=== PATIENT | male | born 1985 | race Caucasian/White ===

== ENCOUNTER 2022-06-14 08:45 | Outpatient (RCR) | payer OTHER | END 2022-06-20 | LOC: M PT 08:45 | PROVIDERS: ATTEND Orthopaedic Surgery Orthopaedic Trauma | DX: S92.011D Displaced fracture of body of right calcaneus, subsequent encounter for fracture with routine healing (principal) ==

== ENCOUNTER 2022-07-19 11:00 | Outpatient (RCR) | payer OTHER | END 2022-07-20 | LOC: M PT 11:00 | PROVIDERS: ATTEND Orthopaedic Surgery Orthopaedic Trauma | DX: S92.011D Displaced fracture of body of right calcaneus, subsequent encounter for fracture with routine healing (principal) ==

== ENCOUNTER → 2022-08-28 | Outpatient (REF) | payer OTHER ==
[2022-08-28 17:10] LABS: BASO # 0.1 10^3/uL (0.0-0.2); BASO % 0.8 % (0.0-1.0); EOS # 0.1 10^3/uL (0.0-0.5); EOS % 1.1 % (0.0-3.0); HEMATOCRIT 38.6 % (42.0-52.0); HEMOGLOBIN 12.6 g/dl (13.5-17.5); LYMPH # 2.4 10^3/uL (1.5-5.0); LYMPH % 32.4 % (24.0-44.0); MEAN CORPUSCULAR HEMOGLOBIN 28.4 pg (27.0-33.0); MEAN CORPUSCULAR HGB CONC 32.6 g/dl (32.0-36.5); MEAN CORPUSCULAR VOLUME 86.9 fl (80.0-96.0); MONO # 0.5 10^3/uL (0.0-0.8); NEUTROPHILS # 4.4 10^3/uL (1.5-8.5); NEUTROPHILS % 58.9 % (36.0-66.0); PLATELET COUNT, AUTOMATED 402 10^3/uL (150-450); RED BLOOD COUNT 4.44 10^6/uL (4.30-6.10); WHITE BLOOD COUNT 7.5 10^3/uL (4.0-10.0)
[2022-08-28 18:17] LABS: ALBUMIN 3.6 GM/DL (3.2-5.2); ALT/SGPT 15 U/L (12-78); BILIRUBIN,TOTAL 0.3 MG/DL (0.2-1.0); BLOOD UREA NITROGEN 18 MG/DL (7-18); CALCIUM LEVEL 8.7 MG/DL (8.5-10.1); CARBON DIOXIDE LEVEL 26 MEQ/L (21-32); CHLORIDE LEVEL 104 MEQ/L (98-107); CREATININE FOR GFR 0.78 MG/DL (0.70-1.30); GLOMERULAR FILTRATION RATE > 60.0 (>60); GLUCOSE, FASTING 95 MG/DL (70-100); POTASSIUM SERUM 4.3 MEQ/L (3.5-5.1); SODIUM LEVEL 140 MEQ/L (136-145); TOTAL PROTEIN 7.6 GM/DL (6.4-8.2)
[2022-08-28 18:57] LABS: ERYTHROCYTE SEDIMENTATION RATE 39 mm/hr (0-15)
== END ==
LOC: M LAB REF 16:11
PROVIDERS: ATTEND Internal Medicine
DX: M86.171 Other acute osteomyelitis, right ankle and foot (principal); B95.61 Methicillin susceptible Staphylococcus aureus infection as the cause of diseases classified elsewhere

== ENCOUNTER → 2022-09-04 | Outpatient (REF) | payer OTHER ==
[2022-09-04 15:38] LABS: BASO # 0.1 10^3/uL (0.0-0.2); BASO % 0.8 % (0.0-1.0); EOS # 0.1 10^3/uL (0.0-0.5); EOS % 0.6 % (0.0-3.0); HEMATOCRIT 41.4 % (42.0-52.0); HEMOGLOBIN 13.2 g/dl (13.5-17.5); LYMPH # 2.7 10^3/uL (1.5-5.0); LYMPH % 31.6 % (24.0-44.0); MEAN CORPUSCULAR HEMOGLOBIN 28.3 pg (27.0-33.0); MEAN CORPUSCULAR HGB CONC 31.9 g/dl (32.0-36.5); MEAN CORPUSCULAR VOLUME 88.7 fl (80.0-96.0); MONO # 0.5 10^3/uL (0.0-0.8); NEUTROPHILS # 5.2 10^3/uL (1.5-8.5); NEUTROPHILS % 60.4 % (36.0-66.0); PLATELET COUNT, AUTOMATED 301 10^3/uL (150-450); RED BLOOD COUNT 4.67 10^6/uL (4.30-6.10); WHITE BLOOD COUNT 8.5 10^3/uL (4.0-10.0)
[2022-09-04 15:56] LABS: ALBUMIN 4.1 G/DL (3.2-5.2); ALT/SGPT 10 U/L (7.0-40); BILIRUBIN,TOTAL 0.2 MG/DL (0.3-1.2); BLOOD UREA NITROGEN 18 MG/DL (9-23); CALCIUM LEVEL 9.3 MG/DL (8.5-10.1); CARBON DIOXIDE LEVEL 27 MMOL/L (20-31); CHLORIDE LEVEL 102 MMOL/L (98-107); CREATININE FOR GFR 0.71 MG/DL (0.70-1.30); GLOMERULAR FILTRATION RATE > 60.0 (>60); GLUCOSE, FASTING 85 MG/DL (60-100); POTASSIUM SERUM 4.2 MMOL/L (3.5-5.1); SODIUM LEVEL 140 MMOL/L (136-145); TOTAL PROTEIN 7.5 G/DL
[2022-09-04 16:15] LABS: ERYTHROCYTE SEDIMENTATION RATE 29 mm/hr (0-15)
== END ==
LOC: M LAB REF 15:09
PROVIDERS: ATTEND Internal Medicine
DX: M86.171 Other acute osteomyelitis, right ankle and foot (principal); B95.61 Methicillin susceptible Staphylococcus aureus infection as the cause of diseases classified elsewhere

== ENCOUNTER → 2022-09-10 | Outpatient (REF) | payer OTHER ==
[2022-09-10 09:43] LABS: BASO # 0.1 10^3/uL (0.0-0.2); BASO % 0.7 % (0.0-1.0); EOS # 0.1 10^3/uL (0.0-0.5); EOS % 1.5 % (0.0-3.0); HEMATOCRIT 41.9 % (42.0-52.0); HEMOGLOBIN 13.4 g/dl (13.5-17.5); LYMPH # 2.2 10^3/uL (1.5-5.0); LYMPH % 32.4 % (24.0-44.0); MEAN CORPUSCULAR HEMOGLOBIN 28.3 pg (27.0-33.0); MEAN CORPUSCULAR VOLUME 88.6 fl (80.0-96.0); MONO # 0.4 10^3/uL (0.0-0.8); MONO % 6.5 % (2.0-8.0); NEUTROPHILS % 58.5 % (36.0-66.0); PLATELET COUNT, AUTOMATED 240 10^3/uL (150-450); RED BLOOD COUNT 4.73 10^6/uL (4.30-6.10); WHITE BLOOD COUNT 6.8 10^3/uL (4.0-10.0)
[2022-09-10 10:04] LABS: ERYTHROCYTE SEDIMENTATION RATE 14 mm/hr (0-15)
[2022-09-10 10:12] LABS: ALBUMIN 4.1 G/DL (3.2-5.2); ALT/SGPT 11 U/L (7.0-40); BILIRUBIN,TOTAL 0.3 MG/DL (0.3-1.2); BLOOD UREA NITROGEN 12 MG/DL (9-23); CALCIUM LEVEL 8.9 MG/DL (8.5-10.1); CARBON DIOXIDE LEVEL 26 MMOL/L (20-31); CHLORIDE LEVEL 104 MMOL/L (98-107); CREATININE FOR GFR 0.68 MG/DL (0.70-1.30); GLOMERULAR FILTRATION RATE > 60.0 (>60); GLUCOSE, FASTING 92 MG/DL (60-100); SODIUM LEVEL 140 MMOL/L (136-145); TOTAL PROTEIN 7.1 G/DL (5.7-8.2)
== END ==
LOC: M LAB REF 08:49
PROVIDERS: ATTEND Internal Medicine
DX: M86.171 Other acute osteomyelitis, right ankle and foot (principal); B95.61 Methicillin susceptible Staphylococcus aureus infection as the cause of diseases classified elsewhere

== ENCOUNTER → 2022-09-17 | Outpatient (REF) | payer OTHER ==
[2022-09-17 09:16] LABS: BASO # 0.1 10^3/uL (0.0-0.2); BASO % 0.8 % (0.0-1.0); EOS # 0.1 10^3/uL (0.0-0.5); EOS % 1.8 % (0.0-3.0); HEMATOCRIT 40.8 % (42.0-52.0); HEMOGLOBIN 13.4 g/dl (13.5-17.5); LYMPH # 1.9 10^3/uL (1.5-5.0); LYMPH % 31.9 % (24.0-44.0); MEAN CORPUSCULAR HEMOGLOBIN 29.4 pg (27.0-33.0); MEAN CORPUSCULAR HGB CONC 32.8 g/dl (32.0-36.5); MEAN CORPUSCULAR VOLUME 89.5 fl (80.0-96.0); MONO # 0.5 10^3/uL (0.0-0.8); MONO % 8.4 % (2.0-8.0); NEUTROPHILS # 3.4 10^3/uL (1.5-8.5); NEUTROPHILS % 56.8 % (36.0-66.0); PLATELET COUNT, AUTOMATED 225 10^3/uL (150-450); RED BLOOD COUNT 4.56 10^6/uL (4.30-6.10)
[2022-09-17 09:45] LABS: ERYTHROCYTE SEDIMENTATION RATE 14 mm/hr (0-15)
[2022-09-17 09:49] LABS: CHLORIDE LEVEL 105 MMOL/L (98-107); POTASSIUM SERUM 4.5 MMOL/L (3.5-5.1); SODIUM LEVEL 141 MMOL/L (136-145)
[2022-09-17 09:50] LABS: CARBON DIOXIDE LEVEL 27 MMOL/L (20-31)
[2022-09-17 09:55] LABS: BLOOD UREA NITROGEN 13 MG/DL (9-23); CALCIUM LEVEL 9.2 MG/DL (8.5-10.1); GLUCOSE, FASTING 91 MG/DL (60-100)
[2022-09-17 09:56] LABS: ALKALINE PHOSPHATASE 94 U/L (46-116)
[2022-09-17 09:57] LABS: ALT/SGPT 11 U/L (7.0-40); AST/SGOT 16 U/L (<34)
[2022-09-17 09:58] LABS: BILIRUBIN,TOTAL 0.3 MG/DL (0.3-1.2); CREATININE FOR GFR 0.66 MG/DL (0.70-1.30); GLOMERULAR FILTRATION RATE > 60.0 (>60); TOTAL PROTEIN 7.2 G/DL (5.7-8.2)
== END ==
LOC: M LAB REF 08:57
PROVIDERS: ATTEND Internal Medicine
DX: B95.61 Methicillin susceptible Staphylococcus aureus infection as the cause of diseases classified elsewhere (principal); M86.171 Other acute osteomyelitis, right ankle and foot

== ENCOUNTER → 2022-09-24 | Outpatient (REF) | payer OTHER ==
[2022-09-24 15:03] LABS: BASO # 0.1 10^3/uL (0.0-0.2); BASO % 0.8 % (0.0-1.0); EOS # 0.1 10^3/uL (0.0-0.5); HEMATOCRIT 41.4 % (42.0-52.0); HEMOGLOBIN 13.4 g/dl (13.5-17.5); LYMPH # 1.9 10^3/uL (1.5-5.0); MEAN CORPUSCULAR HEMOGLOBIN 29.5 pg (27.0-33.0); MEAN CORPUSCULAR HGB CONC 32.4 g/dl (32.0-36.5); MONO # 0.6 10^3/uL (0.0-0.8); MONO % 9.5 % (2.0-8.0); NEUTROPHILS # 3.3 10^3/uL (1.5-8.5); NEUTROPHILS % 56.4 % (36.0-66.0); PLATELET COUNT, AUTOMATED 304 10^3/uL (150-450); RED BLOOD COUNT 4.55 10^6/uL (4.30-6.10); WHITE BLOOD COUNT 5.9 10^3/uL (4.0-10.0)
[2022-09-24 15:51] LABS: ERYTHROCYTE SEDIMENTATION RATE 15 mm/hr (0-15)
[2022-09-24 17:05] LABS: ALBUMIN 4.1 G/DL (3.2-5.2); ALKALINE PHOSPHATASE 96 U/L (46-116); ALT/SGPT 16 U/L (7.0-40); AST/SGOT 18 U/L (<34); BILIRUBIN,TOTAL 0.2 MG/DL (0.3-1.2); BLOOD UREA NITROGEN 16 MG/DL (9-23); CALCIUM LEVEL 8.9 MG/DL (8.5-10.1); CARBON DIOXIDE LEVEL 25 MMOL/L (20-31); CHLORIDE LEVEL 105 MMOL/L (98-107); CREATININE FOR GFR 0.74 MG/DL (0.70-1.30); GLOMERULAR FILTRATION RATE > 60.0 (>60); GLUCOSE, FASTING 87 MG/DL (60-100); POTASSIUM SERUM 4.4 MMOL/L (3.5-5.1); SODIUM LEVEL 141 MMOL/L (136-145); TOTAL PROTEIN 7.3 G/DL (5.7-8.2)
== END ==
LOC: M LAB REF 14:24
PROVIDERS: ATTEND Internal Medicine
DX: M86.171 Other acute osteomyelitis, right ankle and foot (principal); B95.61 Methicillin susceptible Staphylococcus aureus infection as the cause of diseases classified elsewhere

== ENCOUNTER → 2023-06-20 | Outpatient (CLI) | payer OTHER ==
[2023-06-20 13:24] LABS: APPEARANCE, URINE CLEAR (CLEAR); BACTERIA, URINE AUTO NEGATIVE (NEGATIVE); BILIRUBIN, URINE AUTO NEGATIVE (NEGATIVE); BLOOD, URINE BLOOD NEGATIVE (NEGATIVE); CALCIUM OXALATE CRYSTALS SMALL; COLOR, URINE YELLOW (YELLOW); GLUCOSE, URINE (UA) AUTO NEGATIVE (NEGATIVE); KETONE, URINE AUTO TRACE mg/dL (NEGATIVE); LEUKOCYTE ESTERASE, URINE AUTO NEGATIVE (NEGATIVE); MUCUS, URINE SMALL (NEGATIVE); NITRITE, URINE AUTO NEGATIVE (NEGATIVE); PROTEIN, URINE AUTO NEGATIVE (NEGATIVE); RBC, URINE AUTO 2 /HPF (0-3); SPECIFIC GRAVITY URINE AUTO 1.032 (1.002-1.035); SQUAMOUS EPITHELIAL CELL UR AU 0 /HPF (0-6); WBC, URINE AUTO 0 /HPF (0-3)
[2023-06-20 13:38] LABS: BASO # 0.1 10^3/uL (0.0-0.2); BASO % 0.8 % (0.0-1.0); EOS # 0.1 10^3/uL (0.0-0.5); HEMATOCRIT 42.7 % (42.0-52.0); HEMOGLOBIN 14.5 g/dl (13.5-17.5); LYMPH # 2.2 10^3/uL (1.5-5.0); LYMPH % 30.2 % (24.0-44.0); MEAN CORPUSCULAR HEMOGLOBIN 30.9 pg (27.0-33.0); MONO # 0.4 10^3/uL (0.0-0.8); MONO % 5.8 % (2.0-8.0); NEUTROPHILS # 4.4 10^3/uL (1.5-8.5); NEUTROPHILS % 61.5 % (36.0-66.0); PLATELET COUNT, AUTOMATED 318 10^3/uL (150-450); RED BLOOD COUNT 4.69 10^6/uL (4.30-6.10); WHITE BLOOD COUNT 7.1 10^3/uL (4.0-10.0)
[2023-06-20 13:56] LABS: HEMOGLOBIN A1c 4.8 % (4.0-6.0)
[2023-06-20 14:14] LABS: ALBUMIN 3.9 G/DL (3.2-5.2); ALKALINE PHOSPHATASE 81 U/L (46-116); ALT/SGPT 26 U/L (7.0-40); AST/SGOT < 8 U/L (<34); BILIRUBIN,TOTAL 0.3 MG/DL (0.3-1.2); BLOOD UREA NITROGEN 18 MG/DL (9-23); CALCIUM LEVEL 9.2 MG/DL (8.5-10.1); CARBON DIOXIDE LEVEL 27 MMOL/L (20-31); CHLORIDE LEVEL 105 MMOL/L (98-107); CHOLESTEROL LEVEL 291 MG/DL (<200); CHOLESTEROL RISK RATIO 6.45 (<5); CREATININE FOR GFR 1.07 MG/DL (0.70-1.30); FREE T4 1.17 NG/DL (0.89-1.76); GLOMERULAR FILTRATION RATE > 60.0 (>60); GLUCOSE, FASTING 122 MG/DL (60-100); HDL CHOLESTEROL 45.1 MG/DL (>40); NON-HDL-C 245.9 MG/DL; POTASSIUM SERUM 4.1 MMOL/L (3.5-5.1); SODIUM LEVEL 141 MMOL/L (136-145); THYROID STIMULATING HORMONE 1.571 uIU/ML (0.55-4.78); TOTAL PROTEIN 7.2 G/DL (5.7-8.2); TRIGLYCERIDES LEVEL 789 MG/DL (<150)
[2023-06-20 14:17] LABS: CREATININE, URINE 313.2 MG/DL; MAU/CREAT RATIO 2.2 MCG/MG (0.0-30.0)
== END ==
LOC: M WUC 09:51
PROVIDERS: ATTEND Family Medicine
DX: R55 Syncope and collapse (principal); E66.3 Overweight

== ENCOUNTER → 2023-07-03 | Outpatient (CLI) | payer OTHER ==
[2023-07-03 10:14] LABS: CHOLESTEROL LEVEL 230 MG/DL (<200); CHOLESTEROL RISK RATIO 5.45 (<5); HDL CHOLESTEROL 42.2 MG/DL (>40); NON-HDL-C 187.8 MG/DL; TRIGLYCERIDES LEVEL 440 MG/DL (<150)
== END ==
LOC: M WUC 08:29
PROVIDERS: ATTEND Family Medicine
DX: E78.1 Pure hyperglyceridemia (principal)

== ENCOUNTER 2024-02-01 15:07 | Emergency (ER) | payer MEDICAID, OTHER, SELFPAY ==
[~2024-02-01] VITALS: Ht 185.4 cm; Wt 97.1 kg
[2024-02-01] MEDS: MORPHINE 4 MG/ML 1ML VIAL IV ONE (15:42)
[2024-02-01] MEDS: ONDANSETRON 4MG 2ML VIAL IV ONE (15:42)
[2024-02-01] MEDS: BOOSTRIX VACCINE (TETANUS/DIPHTH/ACEL. PERTUSSIS) 0.5ML SYR IM ONE (15:48)
[2024-02-01] MEDS: LIDOCAINE 1% MDV 20ML VIAL SC ONE (18:15)
[2024-02-01] MEDS ORDERED: CEPH250T PO ×2 (18:56)
[2024-02-01] MEDS ORDERED: OXYC1TAB23 PO (18:56)
[2024-02-01] MEDS: cefTRIAXone SOD 1 GM in D5W MINI-BAG PLUS 50 ML IV ONE (19:21)
[2024-02-01] MEDS: PERCOCET 5MG/325MG TAB PO ONE (19:57)
[2024-02-01 20:15] VITALS: BP 124/93; TEMP 99; O2SAT 95
== END 2024-02-01 20:19 | disposition home or self-care (01) ==
LOC: M ED 15:07
DX: S66.222A Laceration of extensor muscle, fascia and tendon of left thumb at wrist and hand level, initial encounter (principal); S61.012A Laceration without foreign body of left thumb without damage to nail, initial encounter; W31.2XXA Contact with powered woodworking and forming machines, initial encounter; F17.200 Nicotine dependence, unspecified, uncomplicated; Z79.2 Long term (current) use of antibiotics; Z79.891 Long term (current) use of opiate analgesic; Y92.9 Unspecified place or not applicable; Y93.89 Activity, other specified; Y99.9 Unspecified external cause status
CPT/HCPCS: 73140; 90715; 96365; 96372; 96375; 99283; J0665; J0696; J2405

== ENCOUNTER 2024-02-02 12:05 | Emergency (ER) | payer OTHER, SELFPAY ==
[~2024-02-02] VITALS: Ht 185.4 cm; Wt 94.7 kg
[~2024-02-02 12:05] MED LIST: CEPH250T PO; OXYC1TAB23 PO
[2024-02-02 12:06] VITALS: BP 141/86; TEMP 97.8; O2SAT 97
== END 2024-02-02 14:41 | disposition home or self-care (01) ==
LOC: M ED 12:05
DX: S61.012A Laceration without foreign body of left thumb without damage to nail, initial encounter (principal); S66.222A Laceration of extensor muscle, fascia and tendon of left thumb at wrist and hand level, initial encounter; Z48.00 Encounter for change or removal of nonsurgical wound dressing; Z79.2 Long term (current) use of antibiotics; Z79.891 Long term (current) use of opiate analgesic; W31.2XXA Contact with powered woodworking and forming machines, initial encounter; Y92.009 Unspecified place in unspecified non-institutional (private) residence as the place of occurrence of the external cause; Y93.89 Activity, other specified; Y99.9 Unspecified external cause status

== ENCOUNTER 2024-02-05 07:58 | Day surgery (SDC) | payer MEDICAID, SELFPAY ==
[~2024-02-05] VITALS: Ht 185.4 cm; Wt 95.8 kg
[2024-02-05] MEDS ORDERED: propofoL 200 MG/20 ML VIAL As Ordered ONE (08:18)
[2024-02-05] MEDS ORDERED: LIDOCAINE 2% 100MG/5ML SDV (FOR ANES.) As Ordered ONE (08:18)
[2024-02-05] MEDS ORDERED: KETOROLAC 60MG 2ML VIAL As Ordered ONE (08:19)
[2024-02-05] MEDS ORDERED: fentaNYL 100 MCG/2 ML INJECTION As Ordered ONE (08:19)
[2024-02-05] MEDS ORDERED: ONDANSETRON 4MG 2ML VIAL As Ordered ONE (08:19)
[2024-02-05] MEDS ORDERED: MIDAZOLAM INJ 2MG/2ML VIAL As Ordered ONE (08:19)
[2024-02-05] MEDS: LR 1,000 ML IV SCH (08:36)
[2024-02-05] MEDS ORDERED: BACITRACIN OINTMENT 30GM TUBE As Ordered ONE (09:17)
[2024-02-05] MEDS: ceFAZolin 2 GM/D5W 50 ML IV BAG As Ordered ONE (09:50)
[2024-02-05] MEDS ORDERED: ACETAMINOPHEN 1000MG 100ML IV BAG As Ordered ONE (09:58)
[2024-02-05] MEDS ORDERED: HYDROmorphone HCL 2MG/ML 1ML VIAL As Ordered ONE (10:01)
[2024-02-05] MEDS ORDERED: dexmedeTOMIDine (4MCG/ML)200MCG/50ML BTL (PRECEDEX) As Ordered ONE (11:23)
[2024-02-05] MEDS ORDERED: ESMOLOL INJ 100MG/10ML VIAL As Ordered ONE (11:36)
[2024-02-05] MEDS ORDERED: ONDANSETRON 4MG 2ML VIAL IV PRN (12:30)
[2024-02-05] MEDS ORDERED: fentaNYL 100 MCG/2 ML INJECTION IV PRN (12:30)
[2024-02-05] MEDS ORDERED: PERCOCET PO (12:42)
[2024-02-05] MEDS: oxyCODONE 5MG TAB PO PRN (13:15)
[2024-02-05 14:10] VITALS: BP 139/77; TEMP 97.7; O2SAT 98
== END 2024-02-05 14:25 | disposition home or self-care (01) ==
LOC: M SDC 07:58
PROVIDERS: ATTEND Orthopaedic Surgery Hand Surgery
DX: S56.022A Laceration of flexor muscle, fascia and tendon of left thumb at forearm level, initial encounter (principal); S63.438A Traumatic rupture of volar plate of other finger at metacarpophalangeal and interphalangeal joint, initial encounter; W31.2XXA Contact with powered woodworking and forming machines, initial encounter; Y92.89 Other specified places as the place of occurrence of the external cause; Y93.9 Activity, unspecified
CPT/HCPCS: 11044; 26356; 64910; 76000; C1713; C1762; J0131; J0665; J0690; J1100; J1170; J1805; J1885; J2250; J2405; J3010